=== PATIENT | female | born 1960 | race Caucasian/White ===

== ENCOUNTER → 2017-08-02 | Outpatient (CLI) | payer MEDICARE | END | disposition home or self-care (01) | LOC: SURG 13:54 | PROVIDERS: ATTEND Anesthesiology Pain Medicine | DX: M54.5 Low back pain (principal); M06.9 Rheumatoid arthritis, unspecified | CPT/HCPCS: 99213 ==

== ENCOUNTER → 2017-10-25 | Outpatient (CLI) | payer MEDICARE ==
[~2017-10-25] MED LIST: KETOROLAC 30 MG/ML VIAL. ONE
== END | disposition home or self-care (01) ==
LOC: SURG 14:51
PROVIDERS: ATTEND Anesthesiology Pain Medicine
DX: M47.816 Spondylosis without myelopathy or radiculopathy, lumbar region (principal); G89.4 Chronic pain syndrome
CPT/HCPCS: 99213; J1885

== ENCOUNTER → 2021-01-10 | Day surgery (SDC) | payer MEDICARE ==
[~2021-01-10] MED LIST changes: +BUSP5TAB PO; +GLYCOPYRROLATE 1 MG/5 ML VIAL. ONE; +HYDR-2145 PO; +IPRATRPIUM/ALBUTEROL 0.5/2.5MG 3 ML NEBU. NEB PRN; +IV RINGERS SOLUTION,LACTATED 1,000 ML IV SCH; -KETOROLAC 30 MG/ML VIAL. ONE; +LIDOCAINE 2% PF 5 ML VIAL. ONE; +LOSA50TA86 PO; +MIDAZOLAM HCL PF 2 MG/2 ML VIAL. IV ONE; +OMEP20CA16 PO; +ONDANSETRON PF 4 MG/2 ML VIAL. IV PRN; +ONDANSETRON PF 4 MG/2 ML VIAL. ONE; +OXCA300T19 PO; +PROPOFOL 10,000 MCG/ML (20ML) VIAL IV ONE; +tylenol 4
--- NOTE | 2021-01-10 08:03 | NUR ---
0755 patient c/o nausea, cannot tolerate smell or O2 tubing. Notified anesthesia, zofran given.
[2021-01-10 09:24] VITALS: BP 112/61
--- NOTE | 2021-01-12 12:08 | PATHOLOGY ---
[facility] Accession Number: [id number] . 01 Material submitted: . PART A: small bowel - SMALL BOWEL BIOPSY PART B: stomach - ANTRUM BIOPSY PART C: gastrointestinal site - GASTRIC POLYP . 01 Clinical history: . N/V,WEIGHT EGD/COLONOSCOPY . 02 Diagnosis: A. Small bowel biopsies: - No diagnostic abnormalities. . B. Gastric biopsy, antrum: - Congestion without significant inflammation. . C. Gastric biopsies, gastric polyp: - Hyperplastic polyp. (JPM:ray; 01/12/2021) [facility] 01/12/2021 0941 Local . 02 Comment: Sections of the small bowel biopsy reveal segments of duodenal and small intestine mucosa. Where best oriented, mucosal villi show no sprue-like changes or significant inflammatory changes. . Sections of the gastric antral biopsy show congestion and no significant inflammation. A properly controlled immunoperoxidase stain for Helicobacter is negative for Helicobacter organisms. . Sections of the gastric polyp biopsy reveal segments of gastric body mucosa showing foveolar hyperplasia consistent with hyperplastic polyp. There are no adenomatous changes or evidence of malignancy. (JPM:ray; 01/12/2021) . Special stain performed: Immunoperoxidase stain for Helicobacter on B1 . Electronically signed: . Varun Pressley MD, Pathologist NPI- [id number] . 01 Gross description: . A. Received in formalin labeled "Mallory De Jesus, small bowel biopsy" are multiple fragments of woo-brown soft tissue measuring in aggregate 1.4 x 0.4 x 0.3 cm. The specimen is submitted entirely in A1. . B. Received in formalin labeled "LachMallory antrum biopsy for H. pylori" is a fragment of woo-brown soft tissue measuring 0.5 x 0.4 x 0.3 cm. The specimen is submitted entirely in B1. . C. Received in formalin labeled "Lach, Mallory gastric polyp" are multiple fragments of woo-brown soft tissue measuring in aggregate 0.7 x 0.4 x 0.3 cm. The specimen is submitted entirely in C1.([facility]; 01/11/2021) GZA/GZA 01/11/2021 1730 Local . 02 Pathologist provided ICD-10: K31.89, K31.7 . 02 CPT . 334260, 331684, [id number], [id number] Specimen Comment: A courtesy copy of this report has been sent to [phone], [phone] Specimen Comment: [id number] Specimen Comment: Report sent to / DR FIGUEROA Specimen Comment: A duplicate report has been generated due to demographic updates. Performed at: [facility] [address], [place] [id number] MD Presley Skelton MD Phone: [phone] Performed at: [facility] [address] [place], [place] [id number] MD Varun Pressley MD Phone: [phone]
== END | disposition home or self-care (01) ==
LOC: SURG 07:30
PROVIDERS: ATTEND Internal Medicine Gastroenterology
DX: R63.4 Abnormal weight loss (principal); R11.0 Nausea; K21.9 Gastro-esophageal reflux disease without esophagitis; K31.89 Other diseases of stomach and duodenum; K31.7 Polyp of stomach and duodenum; J45.909 Unspecified asthma, uncomplicated; I10 Essential (primary) hypertension; M79.7 Fibromyalgia; M06.9 Rheumatoid arthritis, unspecified; Z79.899 Other long term (current) drug therapy; Z86.010 Personal history of colon polyps; Z80.0 Family history of malignant neoplasm of digestive organs
CPT/HCPCS: 43239; 45378; 88305; 88342; J2001; J2405; J2704; J3490; J7120

== ENCOUNTER → 2021-02-24 | Outpatient (CLI) | payer MEDICARE ==
[2021-01-10 09:24] VITALS: BP 112/61
[~2021-02-24] MED LIST changes: -GLYCOPYRROLATE 1 MG/5 ML VIAL. ONE; +IOHEXOL 240 MG/ML 50ML VIAL. ONE; +IOHEXOL 240 MG/ML 50ML VIAL. PO ONE; +IOHEXOL 300 MG/ML 75 ML VIAL. IV ONE; -IPRATRPIUM/ALBUTEROL 0.5/2.5MG 3 ML NEBU. NEB PRN; -IV RINGERS SOLUTION,LACTATED 1,000 ML IV SCH; -LIDOCAINE 2% PF 5 ML VIAL. ONE; -MIDAZOLAM HCL PF 2 MG/2 ML VIAL. IV ONE; -ONDANSETRON PF 4 MG/2 ML VIAL. IV PRN; -ONDANSETRON PF 4 MG/2 ML VIAL. ONE; -PROPOFOL 10,000 MCG/ML (20ML) VIAL IV ONE
--- NOTE | 2021-02-24 12:00 | RAD ---
CT ABDOMEN+PELVIS W History: Weight loss, no appetite, nausea. Comparison: None. Technique: CT of the abdomen and pelvis with oral and intravenous contrast. Findings: Dependent changes in lung bases. Trace pericardial fluid. No pleural effusion. Liver contains a left lobe 6 mm hypodensity which is too small to characterize, likely cyst or bessy ioma. The gallbladder, pancreas, spleen, adrenal glands and kidneys are unremarkable. Normal stomach. Contrast partially opacifies the small bowel. No stricture or obstruction is identifi ed. There is a moderate colonic stool burden. No significant diverticular disease. No colonic wall th ickening or pericolonic inflammatory changes. The uterus and adnexa are normal in appearance. There is a minute amount of cul-de-sac and perirectal free fluid. Unremarkable vasculature. No abdominal pelvic adenopathy. Soft tissues and osseous struc tures are unremarkable. Impression: 1. Per minute cul-de-sac and perirectal free fluid without obvious etiology may be physiologic. No o ther significant abnormality in the abdomen and pelvis. ------ Exposure: One or more of the following individualized dose reduction techniques were utilized for thi s examination: 1. Automated exposure control 2. Adjustment of the mA and/or kV according to patient size 3. Use of iterative reconstruction technique. Electronically signed by: Blaise Plummer MD (02/24/2021 11:58 AM) [facility]
== END ==
LOC: CT 08:36
PROVIDERS: ATTEND Internal Medicine Gastroenterology
DX: R63.4 Abnormal weight loss (principal); R11.0 Nausea
CPT/HCPCS: 74177; Q9967